=== PATIENT | male | born 1940 | race Caucasian/White ===

== ENCOUNTER → 2025-01-02 | Outpatient (CLI) | payer MEDICARE ==
[~2025-01-02] MED LIST: CABOMETYX20 MG PO; Flomax0.4 MG PO; HIGH BLOOD PRESSURE; LEVSOD137 PO; LEVSOD200 PO; LOSA50 PO; SIMV10 PO; ZOCOR20 MG PO
[2025-01-02 10:36] LABS: BASOPHILS ABSOLUTE AUTO 0.03 K/mm3 (0.00-0.23); BASOPHILS PERCENT AUTO 1 % (0-2); EOSINOPHILS ABSOLUTE AUTO 0.06 K/mm3 (0.00-0.68); EOSINOPHILS PERCENT AUTO 1 % (0-6); Hematocrit 42.4 % (37.0-53.0); Hemoglobin 13.8 g/dL (13.5-17.5); IMMATURE GRAN ABSOLUTE AUTO 0.01 K/mm3 (0.00-0.10); IMMATURE GRAN PERCENT AUTO 0 % (0-1); LYMPHOCYTES ABSOLUTE AUTO 1.25 K/mm3 (0.84-5.20); LYMPHOCYTES PERCENT AUTO 25 % (21-46); MONOCYTES ABSOLUTE AUTO 0.47 K/mm3 (0.16-1.47); MONOCYTES PERCENT AUTO 9 % (4-13); Mean Corpuscular HGB 33.1 pg (26.0-34.0); Mean Corpuscular HGB Conc 32.5 g/dL (31.5-36.5); Mean Corpuscular Volume 102 fL (80-100); Mean Platelet Volume 10.4 fL (9.1-12.4); NEUTROPHILS ABSOLUTE AUTO 3.27 K/mm3 (1.96-9.15); NEUTROPHILS PERCENT AUTO 64 % (41-73); Platelet Count 180 K/mm3 (150-400); RDW Coefficient Variation 14.4 % (11.7-14.2); RDW Standard Deviation 53.4 fL (35.1-46.3); Red Blood Cell Count 4.17 M/mm3 (4.30-5.90); White Blood Cell Count 5.09 K/mm3 (4.00-11.30)
[2025-01-02 11:21] LABS: Albumin, Blood 3.1 g/dL (3.4-5.0); Albumin/Globulin Ratio 0.9 (0.8-1.8); Bilirubin, Total 0.7 mg/dL (0.1-1.0); Bun/Creatinine Ratio 18.5 (12.0-20.0); Calcium, Blood 8.9 mg/dL (8.5-10.1); Creatinine, Blood 0.65 mg/dL (0.60-1.20); Globulin, Blood 3.4 g/dL (2.2-4.0); Thyroid Stimulating Hormone 1.378 uIU/mL (0.360-4.800); Total Protein, Blood 6.5 g/dL (6.4-8.2)
== END | disposition home or self-care (01) ==
LOC: LAB SHORT 10:32 → LAB 10:32
PROVIDERS: Physician Assistant
DX: I10 Essential (primary) hypertension (principal); E03.9 Hypothyroidism, unspecified
CPT/HCPCS: 80053; 84443; 85025

== ENCOUNTER → 2025-04-20 | Outpatient (CLI) | payer MEDICARE | END | disposition home or self-care (01) | LOC: LAB 14:56 → LAB SHORT 14:56 | DX: L08.0 Pyoderma (principal); L98.499 Non-pressure chronic ulcer of skin of other sites with unspecified severity | CPT/HCPCS: 87070; 87106; 87205 ==

== ENCOUNTER 2025-05-12 02:34 | Day surgery (SDC) | payer MEDICARE ==
[2025-05-12] MEDS ORDERED: Lidocaine HCl 4% Cream 5 GM ONE (08:24)
== END 2025-05-12 23:00 | disposition home or self-care (01) ==
LOC: WOUND 02:34
DX: I83.028 Varicose veins of left lower extremity with ulcer other part of lower leg (principal); L97.822 Non-pressure chronic ulcer of other part of left lower leg with fat layer exposed; I87.2 Venous insufficiency (chronic) (peripheral); E11.51 Type 2 diabetes mellitus with diabetic peripheral angiopathy without gangrene; C64.9 Malignant neoplasm of unspecified kidney, except renal pelvis; C79.9 Secondary malignant neoplasm of unspecified site; I10 Essential (primary) hypertension; Z87.891 Personal history of nicotine dependence
CPT/HCPCS: A9270; G0463

== ENCOUNTER 2025-08-06 06:59 | Observation (INO) | payer MEDICARE ==
[~2025-08-06] VITALS: Ht 170.2 cm; Wt 62.2 kg
[2025-08-06 07:55] LABS: BASOPHILS ABSOLUTE AUTO 0.05 K/mm3 (0.00-0.23); BASOPHILS PERCENT AUTO 0 % (0-2); EOSINOPHILS ABSOLUTE AUTO 0.01 K/mm3 (0.00-0.68); EOSINOPHILS PERCENT AUTO 0 % (0-6); Hematocrit 31.1 % (37.0-53.0); Hemoglobin 9.0 g/dL (13.5-17.5); IMMATURE GRAN ABSOLUTE AUTO 0.14 K/mm3 (0.00-0.10); IMMATURE GRAN PERCENT AUTO 1 % (0-1); LYMPHOCYTES ABSOLUTE AUTO 1.04 K/mm3 (0.84-5.20); LYMPHOCYTES PERCENT AUTO 9 % (21-46); MONOCYTES ABSOLUTE AUTO 0.95 K/mm3 (0.16-1.47); MONOCYTES PERCENT AUTO 9 % (4-13); Mean Corpuscular HGB Conc 28.9 g/dL (31.5-36.5); Mean Corpuscular Volume 90 fL (80-100); NEUTROPHILS ABSOLUTE AUTO 8.96 K/mm3 (1.96-9.15); NEUTROPHILS PERCENT AUTO 80 % (41-73); NRBC ABSOLUTE 0.00 K/mm3 (0.00-0.02); NRBC Auto 0.0 /100 WBC (0.0-0.2); Platelet Count 646 K/mm3 (150-400); RDW Coefficient Variation 17.6 % (11.7-14.2); RDW Standard Deviation 57.6 fL (35.1-46.3)
[2025-08-06 08:30] LABS: Alanine Aminotransfer (ALT/SGP 11.0 U/L (12-78); Albumin, Blood 2.0 g/dL (3.4-5.0); Albumin/Globulin Ratio 0.4 (0.8-1.8); Anion Gap 9.0 mmol/L (3-11); Aspartate Aminotrans (AST/SGOT 6.0 U/L (12-37); Bilirubin, Total 0.4 mg/dL (0.1-1.0); Blood Urea Nitrogen 12.0 mg/dL (8-24); CO2, Blood 27.0 mmol/L (21-32); Calcium, Blood 8.9 mg/dL (8.5-10.1); Chloride, Blood 102.0 mmol/L (98-108); Creatinine, Blood 0.49 mg/dL (0.60-1.20); Globulin, Blood 4.9 g/dL (2.2-4.0); Glucose, Blood 115.0 mg/dL (70-99); Potassium, Blood 3.7 mmol/L (3.5-5.5); Sodium, Blood 134.0 mmol/L (136-145); Total Protein, Blood 6.9 g/dL (6.4-8.2)
[2025-08-06] MEDS ORDERED: HYDROmorphone HCl/Pf 1MG SYR IV ONE ×2 (09:05→11:00)
[2025-08-06] MEDS ORDERED: NS 1,000 ML IV SCH (09:05)
[2025-08-06] MEDS ORDERED: CefTRIAXone Sodium 1,000 MG in NS 100 ML IV ONE (11:50)
[2025-08-06] MEDS ORDERED: Ondansetron HCl 2 MG / ML 2ML Vial IV PRN (13:55)
[2025-08-06] MEDS ORDERED: FLU VACC TS2025(65UP)/MF59C/PF 45 MCG/0.5 ML SYRINGE IM SCH (13:55)
[2025-08-06] MEDS ORDERED: OMEP20ER (14:58)
[2025-08-06] MEDS ORDERED: VENLAFAXINE ER 75MG (14:58)
[2025-08-06] MEDS ORDERED: AMLODIPINE BESYL5 MG PO (14:58)
--- NOTE | 2025-08-06 16:53 | NUR ---
PT ARRIVAL NOTE PT ARRIVED TO UNIT AT 1535 VIA GURNEY, TRANSFERED BY SBA TO HOSPITAL BED. IS AT BEDSIDE. CALL LIGHT IN REACH, BED IN LOWEST POSITION.
[2025-08-06 17:16] VITALS: BP 119/66
--- NOTE | 2025-08-06 18:10 | NUR ---
END OF SHIFT SUMMARY PT IS A/O X4 ABLE TO MAKE NEEDS KNOWN AND CAN MOVE EXTREMITIES EQUALLY AND BILATERALLY. PT IS AFEBRILE. CONTINUOUS CARDIAC MONITORING IN PLACE, MAP >65. HR IN THE 80'S, NSR. PT IS ON 2L NC WITH SP02 >92%. PT CAN BECOME SOB WITH MOVEMENT. PT IS ON REGULAR DIET AND CAN TOLERATE PO INTAKE WELL. PT IS SBA. PIV IS IN PLACE TO LAC. BED IS IN LOWEST POSITION, CALL LIGHT IN REACH, WILL REPORT TO ONCOMING SHIFT.
[2025-08-06 20:48] VITALS: BP 122/59
[2025-08-06] MEDS ORDERED: Enoxaparin 60 MG/0.6 ML SYR SC SCH (21:00)
[2025-08-07 00:11] VITALS: BP 114/67
[2025-08-07 04:02] LABS: Hematocrit 31.2 % (37.0-53.0); Hemoglobin 8.8 g/dL (13.5-17.5); Mean Corpuscular HGB Conc 28.2 g/dL (31.5-36.5); Mean Corpuscular Volume 89 fL (80-100); NRBC ABSOLUTE 0.00 K/mm3 (0.00-0.02); NRBC Auto 0.0 /100 WBC (0.0-0.2); Platelet Count 586 K/mm3 (150-400); RDW Coefficient Variation 17.5 % (11.7-14.2); RDW Standard Deviation 56.5 fL (35.1-46.3)
[2025-08-07 04:18] VITALS: BP 102/52
[2025-08-07 04:30] LABS: Alanine Aminotransfer (ALT/SGP 10.0 U/L (12-78); Albumin, Blood 1.6 g/dL (3.4-5.0); Albumin/Globulin Ratio 0.3 (0.8-1.8); Anion Gap 9.0 mmol/L (3-11); Aspartate Aminotrans (AST/SGOT 14.0 U/L (12-37); Bilirubin, Total 0.4 mg/dL (0.1-1.0); Blood Urea Nitrogen 9.0 mg/dL (8-24); CO2, Blood 29.0 mmol/L (21-32); Calcium, Blood 8.8 mg/dL (8.5-10.1); Chloride, Blood 103.0 mmol/L (98-108); Creatinine, Blood 0.52 mg/dL (0.60-1.20); Globulin, Blood 4.8 g/dL (2.2-4.0); Glucose, Blood 100.0 mg/dL (70-99); Potassium, Blood 4.0 mmol/L (3.5-5.5); Sodium, Blood 137.0 mmol/L (136-145); Total Protein, Blood 6.4 g/dL (6.4-8.2)
[2025-08-07] MEDS ORDERED: Polyethylene Glycol 3350 17 gm PO PRN (05:50)
--- NOTE | 2025-08-07 06:23 | NUR ---
Shift Summary Pt on 2L t/o the night, no desat events. Pt did kendra down to 39-40 a few times on tele which shows BBB, no change in patient condition. Two small episdes of bigeminy as well. Pt is currently on RA this morning, SPO2 > 92%. Very low PO intake, I tried to encourage Ensure but pt only drank about 30% of a carton. Pt states no BM in 3 days, I told the resident who ordered bowel care medications. Pt is AOx4 with some confusion and forgetfulness. He is 1 SBA to the BR, stable on his feet.
[2025-08-07 08:05] VITALS: BP 123/73
[2025-08-07 11:08] VITALS: BP 104/72
[2025-08-07] MEDS ORDERED: CefTRIAXone Sodium 1,000 MG in NS 100 ML IV SCH (12:00)
[2025-08-07] MEDS ORDERED: ELIQUIS5 MG PO (12:48)
[2025-08-07] MEDS ORDERED: ELIQUIS5 M2 PO (12:52)
[2025-08-07] MEDS ORDERED: JARDIANCE10 MG PO (12:53)
--- NOTE | 2025-08-07 14:32 | NUR ---
DISCHARGE NOTE PT IS A/O X4 ABLE TO MAKE NEEDS KNOWN AND CAN MOVE EXTREMITIES EQUALLY AND BILATERALLY, PT IS AFEBRILE. PT IS ON RA WITH SP02 >92%. PT IS SBA/IND. PROVIDED DISCHARGE INSTRUCTIONS TO PT AND WENT OVER PAPERWORK WITH PT AND . ALL BELONGINGS LEFT WITH PT, PT LEFT UNIT AT 1422.
== END 2025-08-07 14:25 | disposition home or self-care (01) ==
LOC: ER 06:59 → PCU 07:00
PROVIDERS: Emergency Medicine; ADMIT Hospitalist
DX: I26.99 Other pulmonary embolism without acute cor pulmonale (principal); C64.2 Malignant neoplasm of left kidney, except renal pelvis; C77.2 Secondary and unspecified malignant neoplasm of intra-abdominal lymph nodes; J18.9 Pneumonia, unspecified organism; R09.02 Hypoxemia; D75.839 Thrombocytosis, unspecified; E88.09 Other disorders of plasma-protein metabolism, not elsewhere classified; E03.9 Hypothyroidism, unspecified; I11.0 Hypertensive heart disease with heart failure; I50.20 Unspecified systolic (congestive) heart failure; J43.9 Emphysema, unspecified; Z79.890 Hormone replacement therapy; Z79.899 Other long term (current) drug therapy; Z85.528 Personal history of other malignant neoplasm of kidney; Z92.21 Personal history of antineoplastic chemotherapy
CPT/HCPCS: 36415; 71046; 71260; 80053; 83605; 83690; 83880; 84484; 85025; 87040; 93005; 93010; 93306; 96365-59; 96366; 96367-59; 96372; 96375-59; 96376-59; 99285-25; A9270; G0378; J0456; J0696; J1171; J1650; J7030; J7050; Q9967